=== PATIENT | female | born 1940 | race Caucasian/White ===

== ENCOUNTER → 2017-08-04 08:51 | Outpatient (CLI) | payer MEDICARE, SELFPAY ==
[2017-08-04 10:51] LABS: ALB/GLOB Ratio 0.9 RATIO (0.9-2.4); AST(SGOT) 17 U/L (15-37); Alanine Aminotransfer ALT/SGPT 23 U/L (13-56); Albumin, Serum 3.5 g/dL (3.2-5.0); Alkaline Phosphatase 81 U/L (45-117); Anion Gap 8 (5-15); BUN 16 mg/dL (7-18); BUN/Creat Ratio 18.6 RATIO (10-20); Calcium,Total 8.8 mg/dL (8.5-10.1); Chloride 109 mmol/L (98-107); Cholesterol 180 mg/dL (200); Creatinine, Serum 0.86 mg/dL (0.55-1.02); EST Glomerular Filtration Rate 68 mL/min (>60); Est Glom Filt Rate - Afr Amer 83 mL/min (>60); Globulin 3.9 g/dL (2.2-4.2); Glucose 127 mg/dL (74-106); High Density Lipoprotein 46 mg/dL; Potassium 4.6 mmol/L (3.5-5.1); Protein, Total 7.4 g/dL (6.4-8.2); Sodium Level 142 mmol/L (136-145); Triglycerides 128 mg/dL; Very Low Density Lipoprotein 26 mg/dL (5-40)
== END ==
PROVIDERS: Family Provider Family Medicine; PCP Family Medicine; Visit Provider Family Medicine
DX: E11.9 Type 2 diabetes mellitus without complications (principal)
CPT/HCPCS: 36415; 80053; 80061

== ENCOUNTER 2018-08-15 12:16 | Emergency (ER) | payer MEDICARE, SELFPAY ==
[2018-08-15 12:17] VITALS: BP 126/77; PULSE 98; RESP 18; TEMP 37.1; O2SAT 93; BMI 40.0
--- NOTE | 2018-08-15 12:57 | EKG12_ITS ---
Test Reason : SOB Blood Pressure : / mmHG Vent. Rate : 085 BPM Atrial Rate : 085 BPM P-R Int : 150 ms QRS Dur : 088 ms QT Int : 368 ms P-R-T Axes : 002 -35 055 degrees QTc Int : 437 ms Normal sinus rhythm Left axis deviation Abnormal ECG When compared with ECG of 30-APR-2009 11:47, No significant change was found Confirmed by MANI GAN ([id number]), industrial editor TAVO GONZALEZ ([id number]) on 08/28/2018 2:30:07 PM Referred By: GEMMA/KEVIN Confirmed By:STEVIE GAN
[2018-08-15] MEDS: Ipratropium/Albuterol Sulfate 3 ML AMPUL.NEB INHALATION (13:17)
[2018-08-15 13:20] VITALS: PULSE 93; RESP 17; O2SAT 94
[2018-08-15 13:34] VITALS: O2SAT 96
[2018-08-15 13:42] LABS: Absolute Lymphocyte Count 1.31 X10^3/ul (0.83-4.51); Absolute Neutrophil Count 8.2 X10^3/uL (2.0-7.7); Basophil# 0.05 X10^3/uL; Basophil% 0.5 % (0-1); Eosinophil# 0.06 X10^3/uL; Eosinophils% 0.5 % (0-5); Hemoglobin 13.9 g/dl (12.0-15.0); Lymphocyte # 1.31 X10^3/ul (4.0); Lymphocyte % 11.9 % (19-41); Mean Corp Hgb Conc 33.9 g/gl (32-36); Mean Corpuscular Volume 94.3 fL (81-99); Mean Platelet Vol. 10.7 fl (6.2-12.0); Monocyte% 12.7 % (0-10); Neutrophil # 8.19 X10^3/uL (2.7-7.7); Neutrophil % 74.2 % (47-70); Platelet Count 144 K/mm3 (150-450); RBC Distribution Width CV 12.7 % (11.6-14.6); RBC Distribution Width SD 43.9 fl (35.1-43.9); Red Blood Count 4.35 M/mm3 (4.2-5.4)
[2018-08-15 13:43] LABS: POSITIVE COUNT NO; POSITIVE DIFFERENTIAL NO; POSITIVE MORPHOLOGY NO
--- NOTE | 2018-08-15 13:43 | RAD_ITS ---
STUDY: X-RAY CHEST REASON FOR EXAM: Female, 78 years old. Shortness of breath and cough TECHNIQUE: PA and lateral views of the chest. COMPARISON: 08/15/2018 FINDINGS: EKG leads overlie the chest The lungs are clear and expanded. There is no demonstrated pleural abnormality. Normal size heart. Normal mediastinum and isaca. Normal visualized pulmonary arteries. Normal visualized aortic arch and descending thoracic aorta. Normal visualized thoracic spine. Evidence of previous right rotator cuff surgery A retrocardiac hiatal hernia is noted that was not described on the previous study. RAD/Chest PA and Lateral IMPRESSION: No acute pulmonary process Electronically Signed: Giovany Ledezma MD at 13:59 EDT , Service support ,
[2018-08-15 13:57] LABS: ALB/GLOB Ratio 0.8 RATIO (0.9-2.4); AST(SGOT) 14 U/L (15-37); Alanine Aminotransfer ALT/SGPT 19 U/L (13-56); Albumin, Serum 3.4 g/dL (3.2-5.0); Alkaline Phosphatase 90 U/L (45-117); Anion Gap 5 (5-15); BUN 18 mg/dL (7-18); BUN/Creat Ratio 17.3 RATIO (10-20); Calcium,Total 8.8 mg/dL (8.5-10.1); Chloride 102 mmol/L (98-107); Creatinine, Serum 1.04 mg/dL (0.55-1.02); EST Glomerular Filtration Rate 55 mL/min (>60); Est Glom Filt Rate - Afr Amer 66 mL/min (>60); Estimated Creatinine Clearance 32.54 ml/min; Globulin 4.5 g/dL (2.2-4.2); Glucose 136 mg/dL (74-106); Potassium 3.8 mmol/L (3.5-5.1); Protein, Total 7.9 g/dL (6.4-8.2); Sodium Level 135 mmol/L (136-145)
[2018-08-15 14:57] VITALS: BP 134/72; PULSE 91; RESP 16; O2SAT 93
--- NOTE | 2018-08-15 15:38 | ED.VISSUMM ---
- ER Visit Summary Date of Service: 08/15/18 Chief Complaint: Shortness of breath History of Present Illness: The patient is a 78 F who presents with shortness of breath that has been getting worse over the past 4 days. Patient states she has been having some tightness in her chest. Patient states this is worse with coughing and with exertion. Patient denies any fevers or chills. Patient admits to a sore throat. Patient also admits to a cough but denies any sputum production. Patient admits to a headache and some mild general weakness. Physical Examination: Vital signs are stable. Patient is afebrile. Patient is in no acute distress. Oral mucosa is pink and moist. Neck is supple. Trachea is midline. There is no JVD noted. Heart was regular rate and rhythm. Lungs showed expiratory wheezing. There is good respiratory effort noted. Abdomen is soft. Bowel sounds are normal. Cranial nerves II through XII are intact. There are no focal motor or sensory deficits noted. Test Results: PA and lateral chest x-ray was obtained. There is no acute cardiopulmonary process. EKG showed normal sinus rhythm with a rate of 85. There are no acute ST or T wave changes. This was unchanged compared to previous EKG dated 04/30/2009. CBC was normal. Basic metabolic profile was essentially within normal limits. Troponin was normal. Emergency Department Course and Treatment: Patient was given a DuoNeb aerosol here. Patient felt better on reevaluation. Patient was given a prescription for albuterol inhaler. Patient was instructed to follow-up with her primary care physician in 5-7 days. Patient and her understood and were agreeable with the plan. All questions were answered. Disposition: Discharge home Impression: Reactive airway disease This note was generated with [employer] dictation software. It may contain incorrect words, spelling, and punctuation that were not noted in review of the chart prior to signing ED Disposition - Plan for ED Patient: Disposition: Home or Assisted Living Diagnosis: Reactive airway disease Instructions: ED Reactive Airway Disease Prescriptions: Albuterol Inhaler [Ventolin Hfa] 2 puff INHALATION Q4H PRN PRN #1 inhaler PRN Reason: Wheezing Referrals: Andrew Domingo MD [Primary Care Provider] - 3-5 Days
[2018-08-15 15:49] VITALS: BP 146/78; PULSE 89; RESP 20; O2SAT 93
== END 2018-08-15 15:56 | disposition home or self-care (01) ==
PROVIDERS: Emergency Provider Emergency Medicine; Family Provider Family Medicine; PCP Family Medicine
DX: J45.909 Unspecified asthma, uncomplicated (principal); R06.00 Dyspnea, unspecified; Z79.899 Other long term (current) drug therapy; E11.9 Type 2 diabetes mellitus without complications; R05 Cough; R53.83 Other fatigue
CPT/HCPCS: 36415; 71046; 80048; 80053; 80061; 84443; 84484; 85025; 93005; 94640; 99284; A4216

== ENCOUNTER → 2018-08-15 | Outpatient (CLI) | payer MEDICARE, SELFPAY ==
--- NOTE | 2018-08-15 10:59 | RAD_ITS ---
STUDY: X-RAY CHEST REASON FOR EXAM: Female, 78 years old. Chest pain/pressure TECHNIQUE: PA and lateral views of the chest. COMPARISON: 11/08/2013 FINDINGS: There are interstitial fibrotic changes of the lungs. There is no demonstrated pleural abnormality. Normal size heart. Normal mediastinum and isaac. Normal visualized pulmonary arteries. There is atherosclerotic calcification of the aortic arch with tortuosity. There are diffuse degenerative changes of the visualized thoracic spine. There is degenerative osteoarthritis of the bilateral shoulders. Evidence previous right rotator cuff surgery. There is no demonstrated abnormality of the visualized soft tissue structures of the upper abdomen. RAD/Chest PA and Lateral IMPRESSION: Degenerative changes, as described above. No demonstrated acute cardiopulmonary process. Electronically Signed: Giovany Ledezma MD at 11:28 EDT , Service support ,
[2018-08-15 12:32] LABS: Absolute Lymphocyte Count 1.42 X10^3/ul (0.83-4.51); Absolute Neutrophil Count 7.5 X10^3/uL (2.0-7.7); Basophil# 0.05 X10^3/uL; Basophil% 0.5 % (0-1); Eosinophil# 0.17 X10^3/uL; Eosinophils% 1.6 % (0-5); Hematocrit 43.2 % (37-47); Hemoglobin 14.4 g/dl (12.0-15.0); Lymphocyte # 1.42 X10^3/ul (4.0); Lymphocyte % 13.6 % (19-41); Mean Corp Hgb Conc 33.3 g/gl (32-36); Mean Corpuscular Hgb 31.5 pg (27.0-32.0); Mean Corpuscular Volume 94.5 fL (81-99); Mean Platelet Vol. 11.1 fl (6.2-12.0); Monocyte# 1.25 X10^3/uL; Neutrophil # 7.53 X10^3/uL (2.7-7.7); Neutrophil % 72.2 % (47-70); Platelet Count 148 K/mm3 (150-450); RBC Distribution Width CV 12.8 % (11.6-14.6); RBC Distribution Width SD 44.5 fl (35.1-43.9); Red Blood Count 4.57 M/mm3 (4.2-5.4); White Blood Count 10.4 K/mm3 (4.4-11.0)
[2018-08-15 12:42] LABS: POSITIVE COUNT NO; POSITIVE DIFFERENTIAL NO; POSITIVE MORPHOLOGY NO
[2018-08-15 12:56] LABS: Anion Gap 9 (5-15); BUN 18 mg/dL (7-18); BUN/Creat Ratio 16.7 RATIO (10-20); Calcium,Total 9.3 mg/dL (8.5-10.1); Chloride 101 mmol/L (98-107); Cholesterol 169 mg/dL (200); Creatinine, Serum 1.08 mg/dL (0.55-1.02); EST Glomerular Filtration Rate 52 mL/min (>60); Est Glom Filt Rate - Afr Amer 63 mL/min (>60); Glucose 139 mg/dL (74-106); High Density Lipoprotein 53 mg/dL; Potassium 3.8 mmol/L (3.5-5.1); Sodium Level 137 mmol/L (136-145); Thyroid Stim Hormone (TSH) 0.52 uIU/mL (0.358-3.74); Triglycerides 125 mg/dL; Very Low Density Lipoprotein 25 mg/dL (5-40)
== END | disposition home or self-care (01) ==
PROVIDERS: Family Provider Family Medicine; PCP Family Medicine; Referring Provider Nurse Practitioner Adult Health; Visit Provider Nurse Practitioner Adult Health
DX: R05 Cough (principal)
CPT/HCPCS: 36415; 71046; 80048; 80061; 84443; 85025

== ENCOUNTER → 2019-01-30 | Outpatient (CLI) | payer MEDICARE, SELFPAY ==
--- NOTE | 2019-01-30 09:28 | BI_ITS ---
BILATERAL DIGITAL MAMMOGRAM WITH TOMOSYNTHESIS: Mediolateraloblique and craniocaudal views demonstrate evidence of dominant parenchymal mass in the anterior aspect the left breast 12:00 position. This spiculated mass lesion is not seen on the previous mammogram obtained on 07/16/2014 and is highly suspicious for carcinoma. A targeted left breast ultrasound at the 12:00 position of the left breast, and a ultrasound directed left breast biopsy is recommended for further evaluation.. No cluster of microcalcifications No evidence of skin thickening or skin retraction is identified Breast Density: The breast tissue is heterogeneously dense, which may obscure small masses. CAD was used to assist in final assessment. IMPRESSION: Abnormal mammogram containing a spiculated mass lesion in the anterior aspect of the left breast, not previously noted which represents carcinoma till proven otherwise. A targeted left breast ultrasound and ultrasound directed left breast biopsy is recommended for further evaluation FINAL ASSESSMENT: BI-RAD CATEGORY IV (SUSPICIOUS ABNORMALITY - BIOPSY RECOMMENDED). Approximately 10% of breast cancers are not detected by mammography. A normal mammogram should not delay biopsy of a clinically suspicious abnormality. Electronically Signed: Trenton Segura, at 19:21 EDT Tel , Service support , BI/SCREEN MAMM (CAD) W/KUNAL ISSA
--- NOTE | 2019-01-30 09:33 | BD_ITS ---
STUDY: DUAL ENERGY X-RAY ABSORPTIOMETRY / DXA REASON FOR EXAM: Female, 78 years old. Early menopause. No loss of height. TECHNIQUE: Bone Mineral Density (BMD) measurements of lumbar spine and bilateral hips were obtained. COMPARISON: Comparison is made with prior study dated July 16, 2014. FINDINGS: Lumbar Spine (L1-L4): g/cm2 (1.134) / T-score (-0.6) / Z-score (1.2) Findings are suggestive of normal bone density with a low fracture risk. Left Femur Total: g/cm2 (0.913) / T-score (-0.8) / Z-score (1.1) Left Femoral Neck: g/cm2 (0.807) / T-score (-1.7) / Z-score (0.4) Right Femur Total: g/cm2 (0.854) / T-score (-1.2) / Z-score (0.6) Right Femoral Neck: g/cm2 (0.794) / T-score (-1.8) / Z-score (0.3) The T-Scores on the most recent prior examination were: Lumbar Spine (L1-L4): There has been improvement of bone density since the previous examination. Left Femur Total: which represents a worsening of 3.4%. Right Femur Total: which represents a worsening of 10.7%. BD/Dexa Bone Density Study IMPRESSION: The patient is considered osteopenic as outlined below according to World Ever Organization (WHO) criteria with a moderate fracture risk. There has been worsening of bone density since the previous examination. Reference Information: The T-score is the number of standard deviations above or below the standard which is normal for young adults at their peak bone mineral density. The World Health Organization (WHO) interprets the T-scores as follows: Above -1 Normal bone density Between -1 and -2.5 Osteopenia Equal to / or below -2.5 Osteoporosis As a practical clinical guideline, osteopenia may be graded as follows: Mild -1 through -1.5 Moderate -1.6 through -2.0 Severe -2.1 through -2.4 The Z-score is the number of standard deviations above or below age-matched controls. A Z-score of less than -1.5 would be considered abnormal. References: 1. NIH Osteoporosis and Related Bone Diseases http://www.osteo.org 2. International Society for Clinical Densitometry http://www.iscd.org 3. National Osteoporosis Foundation http://www.nof.org Electronically Signed: Medhat Gallardo, at 8:49 EDT , Service support ,
== END | disposition home or self-care (01) ==
LOC: OPBD 09:26
PROVIDERS: Family Provider Family Medicine; PCP Family Medicine; Referring Provider Family Medicine; Visit Provider Family Medicine
DX: Z78.0 Asymptomatic menopausal state (principal); Z12.31 Encounter for screening mammogram for malignant neoplasm of breast
CPT/HCPCS: 77063; 77067; 77080

== ENCOUNTER → 2019-02-05 | Outpatient (CLI) | payer MEDICARE, SELFPAY ==
--- NOTE | 2019-02-05 10:26 | US_ITS ---
STUDY: ULTRASOUND BREAST - LEFT REASON FOR EXAM: Female, 78 years old. Abnormal screening mammogram. TECHNIQUE: Axial and longitudinal images of the LEFT breast were performed with a high resolution ultrasound transducer. COMPARISON: Comparison is made with prior mammogram dated January 30, 2019. FINDINGS: LEFT Breast: The mammographic abnormality corresponds to an 8 mm x 7 mm x 7 mm irregular hypoechoic solid nodule at the 12:00 position of the breast at 3 cm from the nipple. Posterior shadowing is seen. A biopsy strongly recommended. Increased vascularity is present. US/Breast Limited Unilateral IMPRESSION: The mammographic abnormality corresponds to an 8 mm x 7 mm x 7 mm irregular hypoechoic solid nodule at the 12:00 position of the breast at 3 cm from nipple. A biopsy is recommended. ASSESSMENT CATEGORY: BIRADS Category 5: Highly Suggestive of Malignancy - Appropriate Action Should Be Taken. A letter regarding these results will be sent to the patient by the facility within 30 days. Electronically Signed: Medhat Gallardo, at 11:06 EDT , Service support ,
== END | disposition home or self-care (01) ==
LOC: OPUS 10:25
PROVIDERS: Family Provider Family Medicine; PCP Family Medicine; Referring Provider Family Medicine; Visit Provider Family Medicine
DX: R92.8 Other abnormal and inconclusive findings on diagnostic imaging of breast (principal)
CPT/HCPCS: 76642

== ENCOUNTER → 2019-02-07 | Outpatient (CLI) | payer MEDICARE, SELFPAY ==
--- NOTE | 2019-02-07 | IMM_PTH ---
PATIENT: JUAN C GONZALEZ LOC: [facility] U#:[id number] AGE/SX: 78/F ROOM: RE02/07/[address]: Dr. Carlin Negrete MD : 1940 BED: DIS: 02/07/2019 SPEC #: [id number] RECD: 02/08/19 12:34 STATUS: NINA REQ #: [id number] JAMES: 02/07/19 00:[address]: Carlin Negrete DEPT: IMMUNOHISTOCHEMISTRY RECD BY: Ramona Colon ENTERED: 02/08/19 12:36 SP TYPE: IMMUNO OTHR DR: Dr. Jann Domingo MD Tissues: Left breast, NOS Procedures: CALPONIN-1 (add) CK5-6 (add) CK8 (add) E-CAD (add) HER2 ÁLVARO (add) KI-67 (add) P53 (add) MD (add) P40 (add) ER (initial) PHYSICIAN & [address] [address] SPECIMEN INFORMATION: Tissue Source: Left breast tissue Clinical Info: Left breast abnormal ultrasound/mammogram Specimen Number: [id number] CPT code: 43252, 08332 x6, 04629 x3 METHODOLOGY: Deparaffinized sections of prefer/formalin-fixed tissue or PAP/DQ stained slides are incubated with monoclonal/polyclonal antibodies/oligonucleotide probes. Localization is made via biotin free immunoperoxidase method. Appropriate controls are performed and reacted as expected. Results on target cell population are indicated in the following table: RESULTS: ANTIBODY / CLONE RESULT E-Cad (ECH-6) positive CK8 (04psesY71) positive Calponin-1 (NG418R) negative CK5-6 (D5 & 1684) negative P40 (BC28) negative P53 (DO-7) negative Ki-67 (30-9) positive, low MORPHOMETRIC ANALYSIS ER (clone 6F11) >95%, strong intensity MD (clone 16/1E2) >95%, strong intensity Her-2Neu (clone CB11) 0 The prognostic test for HER2 is performed on formalin-fixed paraffin embedded tissue. A 3+ (positive) staining pattern is defined as intense, homogeneous, complete, circumferential membranous staining in >10% of contiguous tumor cells. A similar weak (2+) staining pattern is interpreted as equivocal. JOSEPH follow-up testing is recommended for all equivocal cases. Positivity/negativity for ER/MD is reported if > or < 1% of the tumor cells are immuno- reactive, respectively. The ASCO/CAP criteria is used for scoring. Reference: Journal of Clinical Oncology, 2013; 31:4589-9261 & 2010; 16:9230-3229. Duration of fixation: 10.5 Hrs; Sample Adequate: Yes. These assays have not been validated on decalcified tissues. Results should be interpreted with caution given the likelihood of false negativity on decalcified specimens. These tests were developed and their performance characteristics determined by [facility]. They may not have been cleared or approved by the U.S. Food and Drug Administration. The FDA has determined that such clearance or approval is not necessary. The above immunohistochemical/dualISH markers are ordered and reviewed by the Pathologist. INTERPRETATION: Left breast, core biopsy: Invasive ductal carcinoma, nuclear grade 2. Positive for estrogen receptors (favorable prognostic indicator). Positive for progesterone receptors (favorable prognostic indicator). Negative for overexpression of RPT3rvd. SJ:agnieszka 02/09/19
[2019-02-07 08:49] VITALS: BMI 40.0
--- NOTE | 2019-02-07 09:00 | BRBX_PTH ---
PATIENT: JUAN C GONZALEZ LOC: [facility] U#:[id number] AGE/SX: 78/F ROOM: RE02/07/[address]: Dr. Carlin Negrete MD : 1940 BED: DIS: 02/07/2019 SPEC #: [id number] RECD: 02/07/19 09:39 STATUS: NINA REQ #: [id number] JAMES: 02/07/19 09:[address]: Carlin Negrete DEPT: SURGICAL PATHOLOGY RECD BY: Tin Henry ENTERED: 02/07/19 13:34 SP TYPE: BREAST BX OTHR DR: Dr. Jann Domingo MD Tissues: Left breast, NOS Procedures: Surgery Specimen Level IV HEADER OPERATION: Left breast biopsy PRE-OP DIAGNOSIS: Left breast abnormal ultrasound/mammogram TISSUE SUBMITTED: Left breast tissue FIXATION TIME: 10.5 hours MICROSCOPIC DIAGNOSIS Left breast, core biopsy: Invasive ductal carcinoma, nuclear grade 2 (0.8 cm in greatest length). See comment. GERMAN:agnieszka 02/08/19 COMMENT The tumor is associated with marked fibrosis and moderate chronic inflammation. Immunohistochemistry ([id number]) supports the above diagnosis. ER/NH/Wdm7bfe studies are being performed on sections of tumor and the results from this study will be reported separately ([id number]). Case has been reviewed in consultation with Dr. Guerrero who concurs with the above diagnosis. IDC:AM MICROSCOPIC DESCRIPTION Slides are reviewed. GROSS DESCRIPTION Received in fixative is one container labeled with the patient's name and designated left breast. The specimen consists of one elongated fragment of herrera-yellow fibroadipose tissue measuring 1.2 cm in length and 0.1 cm in diameter. The entire specimen is submitted in one cassette. / GERMAN:agnieszka 02/07/19 TC:0 CPT: 11448
== END | disposition home or self-care (01) ==
LOC: LABSPEC 10:54
PROVIDERS: Family Provider Family Medicine; PCP Family Medicine; Referring Provider Surgery; Visit Provider Surgery
DX: R92.8 Other abnormal and inconclusive findings on diagnostic imaging of breast (principal)
CPT/HCPCS: 88305; 88341; 88342

== ENCOUNTER 2019-02-21 07:38 | Day surgery (SDC) | payer MEDICARE, SELFPAY ==
[2019-02-13 10:12] VITALS: BMI 40.0
--- NOTE | 2019-02-13 10:32 | HP_ITS ---
Intake Vital Signs 02/13/19 Body Mass Index (BMI) 40.0 02/13/19 Height 4 ft 11.5 in 02/13/19 Weight: 185 lb 02/13/19 Body Mass Index (BMI) 36.7 02/13/19 Blood Pressure 112/75 02/13/19 Blood Pressure Location Rt brachial 02/13/19 Blood Pressure Position Sitting 02/13/19 Respiratory Rate 18 02/13/19 Pulse Rate 76 02/13/19 Pulse Source Monitor 02/13/19 Temperature 98.5 F 02/13/19 Temperature Source Oral 02/13/19 Pulse Ox 96 02/13/19 Oxygen Delivery Method room air Intake Visit Reasons: Discuss Surgery Chief Complaint: Follow up left breast biopsy [employer] Required: No Is patient in pain?: No Allergies aspirin Allergy (Verified 02/13/19 10:12) Swelling levofloxacin [From Levaquin] Allergy (Verified 02/13/19 10:12) Swelling meperidine HCl [From Demerol] Allergy (Verified 02/13/19 10:12) Swelling Medications Sertraline HCl [Zoloft] 100 mg PO QHS 02/23/13 [History Confirmed 02/13/19] Albuterol Inhaler [Ventolin Hfa] 2 puff INHALATION Q4H PRN PRN #1 inhaler 08/15/18 [Rx Confirmed 02/13/19] nizjakdn-ilo-otmcl ac 400 mcg-calcium carb 500 mg-vit K1 20 mcg tablet tab PO tab 02/07/19 [History Confirmed 02/13/19] Is last menstrual period known: No Post menopausal: Yes Patient : No PFSH Medical History Breast cancer, left (Acute) Anxiety (Acute) Back pain (Acute) Surgical History History of bilateral cataract extraction (Acute) History of bilateral knee replacement (Acute) History of colonoscopy (Acute) History of lumpectomy of left breast (Acute) History of total hysterectomy (Acute) Status post cataract extraction of both eyes with insertion of intraocular lens (Acute) history of bilateral elbow surgery (Acute) history of bilateral heel spur removal (Acute) history of dental implant surgery (Acute) Family History Sister Heart disease Thyroid disorder Cancer renal Father Cancer brain Mother Cancer unsure type Social History (Updated 02/13/19 @ 10:32 by Carlin Negrete MD) Smoking Status: Never smoker HPI HPI HPI: JUAN C GONZALEZ, is a 78 F who presents to the office today for HPI HPI Surgical H&P: Yes HPI: JUAN C GONZALEZ, is a 78 F who presents to the office today for Status post an ultrasound-guided needle core biopsy of her left breast which was completed on 02/07/2019. This came back as an invasive ductal carcinoma it was ER and AR strongly positive and HER-2/jonathan negative. I discussed with her surgical options to include an ultrasound-guided wire localization sentinel lymph node biopsy lumpectomy. As well as discussing with her the possibility of a mastectomy. She has opted to undergo the lumpectomy. ROS General General: Yes weight change and fatigue; no appetite, colon cancer, breast cancer or weakness HEENT HEENT: Yes eye surgery; no difficulty swallowing, eye injury, swollen glands or hoarseness Endo Endocrine: No thyroid disease, diabetes mellitus, thyroid cancer, Hair loss, heat intolerance or cold intolerance Breast Breast: Yes abnormal mammogram and abnormal US; no left breast lump, right breast lump, nipple discharge, breast pain or breast enlargement Musc Musculoskeletal: Yes back problems; no arthritis, rheumatoid arthritis, gout or joint pain Cardio Cardiovascular: No murmur, pacemaker, heart disease, atrial fibrillation, high blood pressure, heart attack, heart stent, palpitations, shortness of breat with exertion or chest pain Resp Respiratory: No shortness of breath, No sleep apnea, No cough, No COPD, No asthma, No emphysema, No wheezing Gastro Gastrointestinal: No abdominal pain, No nausea or vomiting, No diarrhea, No constipation, No blood in stool, No acid reflux, No hemorrhoids, No ulcers, No gallbladder problem, No black,tarry stools Paul Hematologic: No blood thinners, No blood disorders, No bleeding, No anemia, No blood clots Neuro Neurologic: No weakness Exam Const General: no acute distress, well developed, well hydrated Orientation: oriented to person, oriented to place, oriented to time [facility] Head: normocephalic, atraumatic Ears: external ears normal Mouth: moist mucous membranes Eyes Sclera: sclerae normal Pupils: normal by confrontation Neck Neck: no lymphadenopathy noted Neck mass: No Thyroid: thyroid normal, symmetrical Chest Chest palpation & inspection: normal inspection of the chest Breast inspection: normal inspection of the breasts Breast Palpation: No nipple discharge Other: Palpation of the right breast reveals NegativeExam for palpable lumps. Palpation of the left breast reveals Biopsy site in the upper outer quadrant Steri-Strips in place no signs of infection. Axillary exam demonstrates no suspicious masses in either the left or right axilla. Resp Effort & Inspection: normal respiratory effort Auscultation: clear to auscultation bilaterally Percussion: percussion normal Cardio Rate: regular rate Rhythm: regular rhythm Heart Sounds: no murmurs GI Palpation: soft, no hepatosplenomegaly, no masses, nontender Rectal Exam: other Other: Rectal exam deferred. Extrem General: normal to inspection, no clubbing, cyanosis or edema Assessment & Plan Problems 1. Malignant neoplasm of upper-outer quadrant of left breast in female, estrogen receptor positive C50.412; Z17.0 Plan I have given the patient options for initial surgical treatment. Options are the following: lumpectomy followed by radiation therapy vs. mastectomy vs. mastectomy followed by immediate reconstruction. I have described the procedures to the patient. I have described the advantages and disadvantages of the options, but I have told the patient that among the options, the survival rate for breast cancer is the same. I have told the patient that with all the surgeries that a sentinel lymph node biopsy is required. I have described the procedure of sentinel lymph node biopsy to the patient. I have told the patient that if the biopsy is positive for metastatic disease, then a full axillary lymph node dissection is required. I have told the patient that adjuvant chemotherapy will be required should the lymph nodes reveal metastatic disease. Also, a full lymph node dissection will increase the risk for lymphedema, especially if there are 4 or more lymph nodes positive for metastatic disease and radiation to the axilla is also required. I have told the patient the risks of surgery, including but not limited to: infection, bleeding, scar tissue, seroma and persistent seroma, lymph leak, injury to any blood vessels, injury to any nerves (particularly the long thoracic, the thoracodorsal, and the second intercostal brachial and the resultant sequelae), lymphedema, cosmetic deformity, dysesthesias, wound infections, further surgery (especially if margins are not clear), complications of anesthesia, etc. the patient understands. The patient will think about the options and discuss it further with the family. The patient will contact me in the next few days when she decides what the patient wishes to do. I have answered all the patient?s questions at this point to her satisfaction and she has no further questions. We will be performing a ultrasound-guided wire localization lumpectomy with sentinel lymph node biopsy on the left breast. Coding Level of Care Code Off vis,est,level 3 Diagnoses Malignant neoplasm of upper-outer quadrant of left breast in female, estrogen receptor positive C50.412; Z17.0 ??Breast location: upper outer quadrant of breast ??Estrogen receptor status: positive ??Laterality: left 02/13/19 1032 <Electronically signed by Carlin whitaker MD> Date _ Carlin Negrete MD I have re-examined the patient. There are no clinical changes since date of exam.
[2019-02-21] VITALS (7 sets, daily range): BP systolic 93–135; BP diastolic 64–77; PULSE 67–83; RESP 16; TEMP 36.2–36.5; O2SAT 92–99; BMI 36.8
--- NOTE | 2019-02-21 | BRBX_PTH ---
PATIENT: JUAN C GONZALEZ [place] [facility] [place][id number] AGE/SX: 78/F ROOM: RE02/21/[address]: Dr. Carlin Negrete MD : 1940 BED: DIS: 02/21/2019 SPEC #: [id number] RECD: 02/21/19 11:52 STATUS: NINA REArmida #: [id number] JAMES: 02/21/19 00:[address]: Carlin Negrete DEPT: SURGICAL PATHOLOGY RECD BY: Ramona Colon ENTERED: 02/21/19 12:35 SP TYPE: BREAST BX OTHR DR: Dr. 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 [place] lymph node, biopsy: Two out of two lymph nodes, negative for metastatic carcinoma. SJ:agnieszka 02/21/19 MICROSCOPIC DIAGNOSIS A. Left breast lumpectomy: Invasive ductal carcinoma. See cancer checklist below. B. Left axillary sentinel lymph nodes, biopsy: One out of two lymph nodes with isolated tumor cells consistent with breast primary. AM:agnieszka 02/27/19 COMMENT INVASIVE BREAST CANCER SUMMARY: (specimen A) Specimen: Partial breast Procedure: Excision with wire guidance Specimen integrity: Single intact specimen. Specimen size: 10 x 7 x 4 cm Specimen laterality: Left Tumor size: 0.9 x 0.7 x 0.5 cm Tumor focality: Single focus of invasive carcinoma Macroscopic and Microscopic extent of tumor: Skin: Negative for carcinoma Nipple: Not present Skeletal muscle: Not present Histologic type of invasive carcinoma: Invasive ductal carcinoma Histologic Grade ([place] grade): Glandular/tubular differentiation score: 3 Nuclear pleomorphism score: 3 Mitotic count score: 2 Overall grade: Grade 3 (total score of 8) Margins: Uninvolved by invasive carcinoma. 1 cm from closest (inferior) margin Lymph-Vascular invasion: Not identified Dermal lymph-vascular invasion: Not identified Ductal carcinoma in situ (DCIS): DCIS is present Estimated percent of DCIS: 25% of tumor volume Number of blocks with DCIS: 3 Number of blocks examined: 12 Architectural patterns: Cribriform and solid Nuclear grade: grade 3 (high grade) Necrosis: present, focal Lobular carcinoma in situ (LCIS): not present Lymph nodes: Number of sentinel lymph nodes examined: 2 Total number of lymph nodes examined (sentinel and nonsentinel): 2 Isolated tumor cells are identified in one of two lymph nodes. See specimen B. Microcalcifications: present in non-neoplastic tissue Treatment effect: Unknown Additional pathologic findings: fibrocystic change, usual intraductal hyperplasia without atypia. Intratumor lymphocytic response: Moderate Ancillary studies: Previously performed on same tumor ([id number] / [id number]). ER: >95%, strong intensity NV: >95%, strong intensity Her2 jonathan: negative (IHC) Her2 by dual JOSEPH: Not performed PATHOLOGIC STAGE: pT1b N0(i+) Mx The above summary is in compliance with [employer] (CAP) Cancer Protocols Checklist and [place] [employer] Committee on Cancer (AJCC), Staging Manual, 8th Ed. Immunohistochemistry ([id number]) supports the above diagnosis. Case has been reviewed in consultation with Dr. Brown who concurs with the above diagnosis. IDC:SJ MICROSCOPIC DESCRIPTION Slides are reviewed. GROSS DESCRIPTION A - Received fresh for intraoperative consultation labeled with the patient's name is a specimen designated left breast lumpectomy. The specimen consists of a piece of fibroadipose with needle localization measuring 10 x 7 x 4 cm. A piece of skin is noted measuring 1.5 x 0.5 cm. The specimen is oriented by suture as follows: stitch comes out anterolateral, double long - medial, single long - superior, double short - posterior chest wall. The specimen is inked as follows: anterior - yellow, posterior - black, superior - blue, inferior - green, medial - orange and lateral - red. Serial sections reveal a herrera, indurated mass measuring 0.9 x 0.7 x 0.5 cm. This mass is 1 cm away from the closest inferior margin. This information is conveyed to the surgeon intraoperatively. Sections of the rest of the specimen reveal herrera-yellow adipose cut surfaces mixed with fibrous area. Account Installer sections are submitted in 12 cassettes as follows: 1 - perpendicular superior and inferior margins, 2 - perpendicular medial and lateral margins, 3 - skin piece, bisected and perpendicular anterior and posterior margins, 4-6 - entire tumor, 7-12 - promotional representative sections adjacent to and away from the tumor. Sections will be submitted after additional fixation. / GERMAN:agnieszka 02/22/19 B - Received fresh for frozen section diagnosis labeled with the patient's name is a specimen designated sentinel lymph node. The specimen consists of a piece of adipose tissue measuring 4 x 3.5 x 1 cm. Two nodules consistent with lymph nodes are identified measuring 1 and 1.5 cm in greatest dimension. Both lymph nodes are submitted entirely for frozen section diagnosis in two cassettes with each cassette containing one lymph node. / GERMAN:agnieszka 02/21/19 TC: 0 CPT: 89115 x2, 46709, 34544, 01002
--- NOTE | 2019-02-21 | IMM_PTH ---
PATIENT: JUAN C GONZALEZ LOC: [facility] – [place] U#:[id number] AGE/SX: 78/F ROOM: RE02/21/[address]: Dr. Carlin Negrete MD : 1940 BED: DIS: 02/21/2019 SPEC #: [id number] RECD: 02/26/19 11:31 STATUS: NIAN REQ #: [id number] JAMES: 02/21/19 00:[address]: Carlin Negrete DEPT: IMMUNOHISTOCHEMISTRY RECD BY: Ramona Colon ENTERED: 02/26/19 11:33 SP TYPE: IMMUNO OTHR DR: Dr. 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 Localization is made via biotin free immunoperoxidase method. Appropriate controls are performed and reacted as expected. Results on target cell population are indicated in the following table: RESULTS: ANTIBODY / CLONE RESULT Block B1 CK8 ([id number]) negative AE1-3 (AE1/AE3/PCK26) negative Block B2 CK8 (71xsuxG87) negative AE1-3 (AE1/AE3/PCK26) positive ER (6F11) positive GATA3 (L50-823) positive Mammaglobin (31A5) positive CK7 (OV-TL12/30) negative These tests were developed and their performance characteristics determined by [facility]. They may not have been cleared or approved by the U.S. Food and Drug Administration. The FDA has determined that such clearance or approval is not necessary. The above immunohistochemical/dualISH markers are ordered and reviewed by the Pathologist. INTERPRETATION: B. [place] lymph node, biopsy: One out of two lymph nodes with isolated tumor cells consistent with breast primary. AM:agnieszka 02/27/19 Case has been reviewed in consultation with Dr. Brown who concurs with the above diagnosis. IDC:SJ
[2019-02-21] MEDS: Lactated Ringers 1,000 ML 100 ML IV (08:12)
--- NOTE | 2019-02-21 08:30 | NM_ITS ---
PROCEDURE: NUCLEAR MEDICINE Injection [place] Node - LEFT breast(s). REASON FOR EXAM: Female, 78 years old. Left breast cancer. TECHNIQUE: [place] node localization using radionuclide methods of the LEFT breast(s) was performed following subcutaneous administration of 1.2 mCi of of sulfur colloid Tc-99m. FINDINGS: 1.2 mCi of technetium labeled sulfur colloid was injected subcutaneously in 4 equal aliquots in the upper outer aspect of the left breast. NM/Lymph Node Injection Only IMPRESSION: Subcutaneous injection of 1.2 mCi of technetium labeled sulfur colloid for sentinel node imaging. Electronically Signed: Medhat Gallardo, at 9:32 EDT , Service support ,
--- NOTE | 2019-02-21 10:45 | PCM.OPRPT ---
Problem List (1) Malignant neoplasm of upper-outer quadrant of left female breast Status: Acute Qualifiers: Estrogen receptor status: positive Qualified Code(s): C50.412 - Malignant neoplasm of upper-outer quadrant of left female breast; Z17.0 - Estrogen receptor positive status [ER+] Report of Operation Date of Procedure: 02/21/19 Pre-Operative Diagnosis: Invasive ductal carcinoma left breast upper outer quadrant Post-Operative Diagnosis: Name Surgery/Procedure Performed:: 1. Wire localization of invasive ductal carcinoma left breast. 2. injection of 5 cc of Lymphazurin blue the left breast. 3. Wire localization lumpectomy of left breast. 4. [place] lymph node biopsy left axilla Anesthesiologist: Lorenzo Marinelli Estimated Blood Loss (mL): < 25 cc Fluids Replaced: 1 L LR Description of Procedure: Patient was brought into the operating room. Placed in the supine position. Under excellent LMA anesthetic ultrasound-guided wire localization was performed using a Kopan's needle. I went through my old previous biopsy site directly through the lesion without difficulty. I prepped the breast with alcohol. I injected 5 cc circumareolar Benjamin and massage the breast for 5 minutes. The breast was then sterilely prepped draped in usual fashion. Local was injected in the upper outer quadrant incision was made ellipsing out mild previous biopsy site he is electrocautery to come directly around the lesion going all the way down to the chest wall and coming out laterally I marked the specimen double long medial, single long anterior, double short posterior, skin and wire, laterally. I used electrocautery to gain access into the clavipectoral fascia and dissecting down I followed a blue lymph node going into the axillary area and removed a grouping of lymph nodes using the harmonic dissector. I took the specimen out it did register on the neoprobe approximately 175 I then placed the neoprobe back into the axilla and no readings were obtained. I irrigated out my wound. I brought the subcu together with interrupted 2-0 Vicryl. Deep dermal stitches of 3-0 Vicryl. Running 4-0 Monocryl. Dermabond was applied sterile dressings were applied and the patient tolerated the procedure well. - Admit VTE Documentation VTE Present on Admission: No VTE Mechan Device Prophylaxis: SCD's VTE Pharm Prophylaxis ordered?: No Reason prophylaxis not ordered:: Treatment Not Indicated
[2019-02-21] MEDS: Cefazolin 2 GM in 0.9% Normal Saline 100 ML IV (11:06)
[2019-02-21] MEDS: Isosulfan Blue 1% 5 ML Vial (11:29)
[2019-02-21] MEDS: Bupivacaine Mpf 0.5% 30 ML VIAL (11:40)
--- NOTE | 2019-02-21 11:45 | BI_ITS ---
SURGICAL BREAST SPECIMEN RADIOGRAPH CLINICAL: Document presence of mass in biopsy specimen. FINDINGS: Specimen shows presence of mass. Electronically Signed: Medhat Gallardo, at 12:48 EDT , Service support , BI/Breast Biopsy Specimen
--- NOTE | 2019-02-21 12:02 | DCINST_ITS ---
Discharge Diet: No Restrictions Discharge Activity: May Not Drive - for 2-3 days or while taking narcotic pain meds. May shower in (days): 1 Lifting Restrictions: 10 pounds for 1 week. Call your doctor if your incision/area has: Continuous Slow Oozing, Sudden In creased Bleeding Call your doctor if you observe: Fever of 101 or Higher Suture Line Care: Avoid Pulling/Pushing, Avoid Pinching/Bending Remove Dressing in (days):: 1 - Remove bulky dressing tomorrow. May leave any opsite dressing for 3-4 days. Keep dressing in place until your follow-up appointment. Additional Dressing/Incision Instructions:: Remove bulky dressing tomorrow. May leave any opsite dressing for 3-4 days. Keep dressing in place until your follow-up appointment. Allergies/Adverse Reactions: Allergies aspirin Allergy (Verified 02/21/19 08:03) Swelling levofloxacin [From Levaquin] Allergy (Verified 02/21/19 08:03) Swelling meperidine HCl [From Demerol] Allergy (Verified 02/21/19 08:03) Swelling Medications to take at Discharge Sertraline HCl [Zoloft] 100 mg PO QHS 02/23/13 eiormksm-ktp-srssd ac 400 mcg-calcium carb 500 mg-vit K1 20 mcg tablet 1 tab PO DAILY tab 02/07/19 Oxycodone HCl/Acetaminophen [Percocet 5/325] 1 - 2 tab PO Q4H PRN PRN 6 Days #30 tab 02/21/19 The following prescriptions were given: Oxycodone HCl/Acetaminophen [Percocet 5/325] 1 - 2 tab PO Q4H PRN PRN 6 Days #30 tab PRN Reason: Pain Prescription Printed Primary Care Physician: Andrew Domingo MD [Primary Care Provider] -
== END 2019-02-21 14:54 | disposition home or self-care (01) ==
LOC: SDC 07:38 → AC 07:44
PROVIDERS: Family Provider Family Medicine; PCP Family Medicine; Referring Provider Surgery; Visit Provider Surgery
PROC: (CPT 19301; principal; 2019-02-21 10:45)
DX: C50.412 Malignant neoplasm of upper-outer quadrant of left female breast (principal); Z17.0 Estrogen receptor positive status [ER+]; F41.9 Anxiety disorder, unspecified; F32.9 Major depressive disorder, single episode, unspecified; Z79.899 Other long term (current) drug therapy
CPT/HCPCS: 00400; 19301; 38500; 38792; 76098; 88305; 88307; 88331; 88332; 88341; 88342; A9541; J7120; J2405; Q9968

== ENCOUNTER → 2019-06-14 15:41 | Outpatient (CLI) | payer MEDICARE, SELFPAY ==
[2019-03-13 11:01] VITALS: BMI 37.0
--- NOTE | 2019-06-14 | BRBX_PTH ---
PATIENT: JUAN C GONZALEZ LOC: [facility] U#:[id number] AGE/SX: 84/F ROOM: RE06/14/[address]: Dr. Carlin Negrete MD : 1940 BED: DIS: SPEC #: [id number] RECD: 06/15/19 09:59 STATUS: NINA ABEL #: [id number] JAMES: 06/14/19 00:[address]: Carlin Negrete DEPT: SURGICAL PATHOLOGY RECD BY: Kyle Alcaraz ENTERED: 06/15/19 10:00 SP TYPE: BREAST BX OTHR DR: Dr. Jann Domingo MD Tissues: Left breast, NOS Procedures: Special Stain Group I Surgery Specimen Level IV GMS Stain (control) HEADER OPERATION: Left breast punch biopsy PRE-OP DIAGNOSIS: Neoplasm of skin of breast TISSUE SUBMITTED: Punch biopsy left breast ISCHEMIC TIME: <30 seconds FIXATION TIME: 76.5 hours MICROSCOPIC DIAGNOSIS Skin lesion of left breast, punch biopsy: Minimal dermal chronic inflammation. No evidence of malignancy. No evidence of fungal organisms. See comment. AM:agnieszka 06/18/19 COMMENT GMS stain with matched control was used in the evaluation of this case. MICROSCOPIC DESCRIPTION Slides are reviewed. Prominent benign nerves are present in the dermis. GROSS DESCRIPTION Received in fixative is one container labeled with the patient's name and designated left breast. The specimen consists of a punch biopsy of herrera-brown skin measuring 0.5 cm in diameter and 0.8 cm in length. The entire specimen is submitted in one cassette. / SJ:agnieszka 06/15/19 TC:3 CPT: 48389, 57172
[2019-06-14 14:50] VITALS: BMI 37.5
== END ==
PROVIDERS: PCP Family Medicine; Referring Provider Surgery; Visit Provider Surgery
DX: D48.5 Neoplasm of uncertain behavior of skin (principal)
CPT/HCPCS: 88305; 88312

== ENCOUNTER → 2020-02-04 09:15 | Outpatient (CLI) | payer MEDICARE, SELFPAY ==
[2019-03-13 11:01] VITALS: BMI 37.0
[2019-09-03 10:15] VITALS: BMI 38.5
[2019-12-03 11:06] VITALS: BMI 37.8
--- NOTE | 2020-02-04 09:16 | BI_ITS ---
MAMMOGRAPHY - BILATERAL DIAGNOSTIC REASON FOR EXAM: Female, 79 years old. History of one year post left lumpectomy. PERTINENT HISTORY: Personal history of breast cancer. Prior left lumpectomy and radiation treatment. TECHNIQUE: Digital bilateral breast shaye (3D mammographic acquisition) in the CC and MLO projections. 2-D mediolateral oblique (MLO) and craniocaudad (CC) views of both breasts were obtained. CAD: Full Field Digital Mammography with Computer Added Detection was performed. COMPARISON: Comparison is made with prior study dated 01/30/2019 and 07/17/2014. FINDINGS: Breast Composition: There are scattered areas of fibroglandular density. There are no dominant masses or suspicious calcifications. The patient is status post lumpectomy in the upper central lateral aspect of the left breast with postoperative scarring and skin thickening. No new mass lesion or cluster of microcalcification is present. No other significant abnormalities are identified. BI/DIAG MAMM W/CAD, BILAT IMPRESSION: Status post lumpectomy in the central slightly lateral aspect of the left breast with postoperative scarring and breast deformity and skin thickening. One year follow-up recommended. (A) ASSESSMENT CATEGORY: BIRADS Category 2: Benign. A letter regarding these results will be sent to the patient by the facility within 30 days. Approximately 10% of breast cancers are not detected by mammography. A normal mammogram should not delay biopsy of a clinically suspicious abnormality. Electronically Signed: Medhat Gallardo, at 15:21 EDT , Service support ,
== END ==
PROVIDERS: PCP Family Medicine; Referring Provider Student in an Organized Health Care Education/Training Program; Visit Provider Student in an Organized Health Care Education/Training Program
DX: C50.412 Malignant neoplasm of upper-outer quadrant of left female breast (principal)
CPT/HCPCS: 77066

== ENCOUNTER → 2020-03-10 12:22 | Outpatient (CLI) | payer MEDICARE, SELFPAY ==
[2019-03-13 11:01] VITALS: BMI 37.0
[2019-12-03 11:06] VITALS: BMI 37.8
[2020-03-10 15:40] LABS: Absolute Lymphocyte Count 1.37 X10^3/uL (0.83-4.51); Absolute Neutrophil Count 2.5 X10^3/uL (2.0-7.7); Basophil# 0.03 X10^3/uL; Basophil% 0.6 % (0-1); Eosinophil# 0.15 X10^3/uL; Eosinophils% 3.2 % (0-5); Hematocrit 41.3 % (37-47); Lymphocyte # 1.37 X10^3/ul (4.0); Lymphocyte % 29.6 % (19-41); Mean Corp Hgb Conc 31.5 g/dL (32-36); Mean Corpuscular Hgb 31.6 pg (27.0-32.0); Mean Corpuscular Volume 100.2 fL (81-99); Mean Platelet Vol. 11.2 fl (6.2-12.0); Monocyte# 0.54 X10^3/uL; Monocyte% 11.7 % (0-10); NRBC Flagged by Analyzer 0 % (0-5); Neutrophil # 2.53 X10^3/uL (2.7-7.7); Neutrophil % 54.7 % (47-70); Platelet Count 208 K/mm3 (150-450); RBC Distribution Width CV 12.8 % (11.6-14.6); RBC Distribution Width SD 47.4 fl (35.1-43.9); Red Blood Count 4.12 M/mm3 (4.2-5.4); White Blood Count 4.6 K/mm3 (4.4-11.0)
[2020-03-10 16:24] LABS: ALB/GLOB Ratio 0.9 RATIO (0.9-2.4); AST(SGOT) 19 U/L (15-37); Alanine Aminotransfer ALT/SGPT 25 U/L (13-56); Albumin, Serum 3.7 g/dL (3.2-5.0); Alkaline Phosphatase 74 U/L (45-117); Anion Gap 6 (5-15); BUN 15 mg/dL (7-18); BUN/Creat Ratio 15.7 RATIO (10-20); Calcium,Total 9.9 mg/dL (8.5-10.1); Chloride 105 mmol/L (98-107); Creatinine, Serum 0.96 mg/dL (0.55-1.02); EST Glomerular Filtration Rate 60 mL/min (>60); Est Glom Filt Rate - Afr Amer 72 mL/min (>60); Globulin 4.2 g/dL (2.2-4.2); Glucose 103 mg/dL (74-106); Potassium 4.6 mmol/L (3.5-5.1); Protein, Total 7.9 g/dL (6.4-8.2); Sodium Level 139 mmol/L (136-145); Thyroid Stim Hormone (TSH) 0.75 uIU/mL (0.358-3.74)
== END ==
PROVIDERS: PCP Family Medicine; Visit Provider Family Medicine
DX: E11.9 Type 2 diabetes mellitus without complications (principal); M85.80 Other specified disorders of bone density and structure, unspecified site
CPT/HCPCS: 36415; 80053; 82306; 84443; 85025

== ENCOUNTER → 2021-02-04 10:06 | Outpatient (CLI) | payer MEDICARE, SELFPAY ==
[2019-03-13 11:01] VITALS: BMI 37.0
[2020-12-09 13:31] VITALS: BMI 35.8
--- NOTE | 2021-02-04 10:06 | BI_ITS ---
MAMMOGRAPHY - BILATERAL SCREENING REASON FOR EXAM: Female, 80 years old. Routine annual screening examination. PERTINENT HISTORY: Personal history of breast cancer. Prior left lumpectomy with radiation treatment. TECHNIQUE: Digital bilateral breast kunal (3D mammographic acquisition) in the CC and MLO projections. 2-D mediolateral oblique (MLO) and craniocaudad (CC) views of both breasts were obtained. CAD: Full Field Digital Mammography with Computer Added Detection was performed. COMPARISON: Comparison is made with prior examination dated 02/04/2020 and 02/21/2019. FINDINGS: Breast Composition: There are scattered areas of fibroglandular density. There are no dominant masses or suspicious calcifications. The patient is status post lumpectomy in the upper slightly lateral portion of the left breast with resultant postoperative architectural distortion and overlying skin thickening. No new mass lesion is seen. Stable densely calcified nodule in the right periareolar region. No other significant abnormalities are identified. There has been no significant change since the prior study. BI/SCRN MAMM (CAD)W/KUNLA BILAT IMPRESSION: Stable bilateral screening mammogram. Yearly follow-up mammogram recommended. (A) ASSESSMENT CATEGORY: BIRADS Category 2: Benign. A letter regarding these results will be sent to the patient by the facility within 30 days. Approximately 10% of breast cancers are not detected by mammography. A normal mammogram should not delay biopsy of a clinically suspicious abnormality. [id number] Electronically Signed: Medhat Gallardo MD at 11:08 EDT , Service support ,
== END ==
PROVIDERS: PCP Family Medicine; Referring Provider Internal Medicine Hematology & Oncology; Visit Provider Internal Medicine Hematology & Oncology
DX: Z12.31 Encounter for screening mammogram for malignant neoplasm of breast (principal)
CPT/HCPCS: 77063; 77067

== ENCOUNTER → 2021-09-15 | Outpatient (CLI) | payer MEDICARE, SELFPAY ==
[2019-03-13 11:01] VITALS: BMI 37.0
== END | disposition home or self-care (01) ==
LOC: LABSPEC 09:47
PROVIDERS: PCP Family Medicine; Visit Provider Family Medicine
DX: U07.1 COVID-19 (principal)
CPT/HCPCS: 87635; U0003; U0005

== ENCOUNTER → 2021-12-10 | Outpatient (CLI) | payer MEDICARE, SELFPAY ==
[2019-03-13 11:01] VITALS: BMI 37.0
--- NOTE | 2021-12-10 15:41 | RAD_ITS ---
EXAM: XR RIGHT SHOULDER COMPLETE, 2 OR MORE VIEWS CLINICAL INDICATION: PAIN TECHNIQUE: Two or more views of the right shoulder. This report was created using [employer] report generation technology. COMPARISON: None. FINDINGS: LUNGS AND PLEURAL SPACES: Unremarkable included portion of the right lung with the exception of tiny presumed calcified granuloma. RIGHT SHOULDER: Postoperative changes with 2 small metal screwlike orthopedic devices in the right humeral head-neck junction. No evidence of glenohumeral or AC joint widening or separation. Inferiorly projecting osteophyte from the distal margin of the clavicle measuring about 5 mm, mildly narrowing the underlying rotator cuff interval. RAD/Shoulder min 2 Views IMPRESSION: Demineralization, degenerative and postoperative changes. No acute abnormality. Electronically Signed: Yolanda Pride MD at 0:18 EDT ,
--- NOTE | 2021-12-10 15:41 | RAD_ITS ---
STUDY: X-RAY - RIGHT WRIST REASON FOR EXAM: Right wrist pain, right wrist injury yesterday. TECHNIQUE: 3 view(s) of the wrist were obtained. COMPARISON: None. FINDINGS: Normal visualized distal radius and ulna. Normal radiocarpal articulation. Normal distal radioulnar articulation. Normal remaining carpal bones. Normal carpal articulations. There is resection arthroplasty of the carpometacarpal articulation of the thumb. Normal second through fifth carpometacarpal articulations. Normal visualized metacarpal bones. There is chondrocalcinosis in the triangular fibrocartilage. There is vascular calcification. RAD/Wrist min 3 Views IMPRESSION: Status post resection arthroplasty of the first carpometacarpal articulation. Chondrocalcinosis. No demonstrated fracture. Electronically Signed: Anant Amaya MD at 7:57 EDT ,
--- NOTE | 2021-12-10 15:41 | RAD_ITS ---
Age: 81 years Exam: XR Elbow Min 3 Views RIGHT Comparison: History: PAIN. FINDINGS: Advanced degenerative change with hypertrophic changes at the medial and lateral humeral condyles, mild hypertrophic changes of the proximal ulna and radius. No joint effusion. Mild tendon calcification posterior to the olecranon. Mild lateral joint compartment narrowing and sclerosis of the articular surface of the radius. RAD/Elbow min 3 Views IMPRESSION: No fracture or joint effusion. Advanced degenerative change. Electronically Signed: Yolanda Pride MD at 0:13 EDT ,
== END | disposition home or self-care (01) ==
LOC: MTRAD 15:39
PROVIDERS: PCP Family Medicine; Referring Provider Family Medicine; Visit Provider Family Medicine
DX: M25.511 Pain in right shoulder (principal); M25.521 Pain in right elbow; M25.531 Pain in right wrist
CPT/HCPCS: 73030; 73080; 73110

== ENCOUNTER → 2021-12-22 | Outpatient (CLI) | payer MEDICARE, SELFPAY ==
[2019-03-13 11:01] VITALS: BMI 37.0
--- NOTE | 2021-12-22 13:56 | RAD_ITS ---
STUDY: X-RAY - RIGHT ELBOW REASON FOR EXAM: Female, 81 years old. PAIN TECHNIQUE: 3 view(s) of the elbow. COMPARISON: Comparison is made with prior study 12/10/2021. FINDINGS: Nondisplaced radial neck fracture. There is degenerative arthrosis of the radiocapitellar and ulnotrochlear articulations. Joint effusion. RAD/Elbow min 3 Views IMPRESSION: Findings suggest a nondisplaced radial neck fracture. Joint effusion. Degenerative changes. Electronically Signed: Medhat Gallardo MD at 14:39 EDT ,
--- NOTE | 2021-12-22 13:57 | RAD_ITS ---
STUDY: X-RAY - ACUTE ABDOMINAL SERIES REASON FOR EXAM: Female, 81 years old. CONSTIPATION TECHNIQUE: Single view of the chest. Supine, and erect view(s) of the abdomen were obtained. COMPARISON: Comparison is made with prior study dated 08/15/2018. FINDINGS: The lungs are clear and expanded. Normal size heart. Normal mediastinum and isaac. Normal visualized pulmonary arteries. There is atherosclerotic calcification of the aortic arch with tortuosity. There is an abundance of fecal material throughout the colon. There are multiple calcified phleboliths. Hepatomegaly. Hiatal hernia. There are diffuse degenerative changes of the visualized lumbar spine. Prior laminectomy and fusion at the L4-L5 and L5-S1 levels. Degenerative changes of the sacroiliac joints bilaterally as well as the symphysis pubis. RAD/Acute Abdomen Inc Chest IMPRESSION: A large amount of fecal material is seen in the colon. Electronically Signed: Medhat Gallardo MD at 15:04 EDT ,
== END | disposition home or self-care (01) ==
LOC: MTRAD 13:55
PROVIDERS: PCP Family Medicine; Referring Provider Family Medicine; Visit Provider Family Medicine
DX: M25.521 Pain in right elbow (principal); K59.00 Constipation, unspecified
CPT/HCPCS: 73080; 74022

== ENCOUNTER → 2022-02-05 | Outpatient (CLI) | payer MEDICARE, SELFPAY ==
[2019-03-13 11:01] VITALS: BMI 37.0
--- NOTE | 2022-02-05 08:20 | BI_ITS ---
MAMMOGRAPHY - BILATERAL SCREENING REASON FOR EXAM: Female, 81 years old. Routine annual screening examination. PERTINENT HISTORY: Personal history of breast cancer. History of prior left lumpectomy with radiation treatment. Prior right stereotactic breast biopsy. TECHNIQUE: Digital bilateral breast kunal (3D mammographic acquisition) in the CC and MLO projections. 2-D mediolateral oblique (MLO) and craniocaudad (CC) views of both breasts were obtained. CAD: Full Field Digital Mammography with Computer Added Detection was performed. COMPARISON: Comparison is made with prior study 02/04/2021 and 02/04/2020. FINDINGS: Breast Composition: There are scattered areas of fibroglandular density. There are no dominant masses or suspicious calcifications. Once again, the patient is status post lumpectomy in the upper slightly lateral aspect of the left breast with resultant architectural distortion and overlying breast deformity and skin thickening. Stable densely calcified nodule in the right periareolar region. A tissue clip marker is seen in the retroareolar region of the right breast. No other significant abnormalities are identified. There has been no significant change since the prior study. BI/SCRN MAMM (CAD)W/KUNAL BILAT IMPRESSION: Stable bilateral screening mammogram. Yearly follow-up mammogram recommended. (A) ASSESSMENT CATEGORY: BIRADS Category 2: Benign. A letter regarding these results will be sent to the patient by the facility within 30 days. Approximately 10% of breast cancers are not detected by mammography. A normal mammogram should not delay biopsy of a clinically suspicious abnormality. [id number] Electronically Signed: Medhat Gallardo MD at 9:12 EDT ,
== END | disposition home or self-care (01) ==
LOC: OPBI 08:19
PROVIDERS: PCP Family Medicine; Referring Provider Internal Medicine Hematology & Oncology; Visit Provider Internal Medicine Hematology & Oncology
DX: Z12.31 Encounter for screening mammogram for malignant neoplasm of breast (principal)
CPT/HCPCS: 77063; 77067

== ENCOUNTER → 2022-06-04 | Outpatient (CLI) | payer MEDICARE, SELFPAY ==
[2019-03-13 11:01] VITALS: BMI 37.0
[2022-06-04 15:08] LABS: Absolute Lymphocyte Count 1.19 X10^3/uL (0.83-4.51); Absolute Neutrophil Count 7.3 X10^3/uL (2.0-7.7); Basophil# 0.09 X10^3/uL; Basophil% 0.9 % (0-1); Eosinophil# 0.14 X10^3/uL; Eosinophils% 1.4 % (0-5); Hematocrit 45.2 % (37-47); Hemoglobin 14.3 g/dL (12.0-15.0); Lymphocyte # 1.19 X10^3/ul (0.83-4.51); Lymphocyte % 12.2 % (19-41); Mean Corp Hgb Conc 31.6 g/dL (32-36); Mean Corpuscular Hgb 30.4 pg (27.0-32.0); Mean Corpuscular Volume 96.2 fL (81-99); Mean Platelet Vol. 11.7 fl (6.2-12.0); Monocyte# 0.96 X10^3/uL; Monocyte% 9.9 % (0-10); NRBC Flagged by Analyzer 0 % (0-5); Neutrophil # 7.31 X10^3/uL (2.7-7.7); Neutrophil % 75.3 % (47-70); Platelet Count 256 K/mm3 (150-450); RBC Distribution Width CV 13.2 % (11.6-14.6); RBC Distribution Width SD 46.9 fl (35.1-43.9); White Blood Count 9.7 K/mm3 (4.4-11.0)
[2022-06-04 15:48] LABS: ALB/GLOB Ratio 0.8 RATIO (0.9-2.4); AST(SGOT) 38 U/L (15-37); Alanine Aminotransfer ALT/SGPT 26 U/L (13-56); Albumin, Serum 3.7 g/dL (3.2-5.0); Alkaline Phosphatase 202 U/L (45-117); Anion Gap 10 (5-15); BUN 17 mg/dL (7-18); BUN/Creat Ratio 19.5 RATIO (10-20); Calcium,Total 10.4 mg/dL (8.5-10.1); Chloride 100 mmol/L (98-107); Creatinine, Serum 0.87 mg/dL (0.55-1.02); EST Glomerular Filtration Rate 66 mL/min (>60); Est Glom Filt Rate - Afr Amer 80 mL/min (>60); Globulin 4.6 g/dL (2.2-4.2); Glucose 105 mg/dL (74-106); Potassium 4.2 mmol/L (3.5-5.1); Prealbumin 13.1 mg/dL (20.0-40.0); Protein, Total 8.3 g/dL (6.4-8.2); Sodium Level 136 mmol/L (136-145)
== END | disposition home or self-care (01) ==
LOC: MFPLAB 11:36
PROVIDERS: PCP Family Medicine; Referring Provider Family Medicine; Visit Provider Family Medicine
DX: C50.919 Malignant neoplasm of unspecified site of unspecified female breast (principal); R11.0 Nausea
CPT/HCPCS: 36415; 80053; 84134; 85025

== ENCOUNTER 2022-06-28 11:47 | Emergency (ER) | payer MEDICARE, SELFPAY ==
[2019-03-13 11:01] VITALS: BMI 37.0
[2022-06-28 11:48] VITALS: BP 122/67; PULSE 88; RESP 16; TEMP 36.1; O2SAT 94; BMI 27.9
--- NOTE | 2022-06-28 12:52 | EX.ED.DYSGE1 ---
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 While she has had problems with this, her son arrives and states that she was able to eat yesterday evening. He had received a phone call that she was whisked off to the hospital. computer help desk representative and social work are present at the bedside, stating that she has a home hospice patient, but because she called out to her this morning and experienced nausea and vomiting 2 or 3 times today, he called EMS. They thought that maybe she was vomiting blood, but not quite sure. [facility] Medical History Adenocarcinoma metastatic to both lungs Adenocarcinoma of unknown primary Anxiety Back pain Bone metastasis Breast cancer, left Liver metastasis Home Medications Calcium 500-Vit D3 600 Caplet 1 tab PO DAILY 03/07/19 [History Last Taken Unknown] tizanidine 2 mg capsule 2 mg PO QHS 06/03/20 [History Last Taken Unknown] sertraline 100 mg tablet 150 mg PO QHS DEPRESSION 08/11/21 [History Last Taken Unknown] anastrozole 1 mg tablet 1 mg PO DAILY 90 days #90 tabs 12/08/21 [Rx Last Taken Unknown] oxycodone 5 mg tablet 5 mg PO Q6H PRN 06/07/22 [History Last Taken Unknown] oxycodone 5 mg tablet 5 mg PO Q6H PRN Pain 7 days #30 tabs 06/07/22 [Rx Last Taken Unknown] pantoprazole 40 mg tablet,delayed release 40 mg PO BID 06/07/22 [History Last Taken Unknown] Allergy/AdvReac Type Severity Reaction Status Date / Time aspirin Allergy Severe Swelling Verified 06/28/22 11:53 levofloxacin [From Levaquin] Allergy Severe Swelling Verified 06/28/22 11:53 meperidine HCl [From Demerol] Allergy Severe Swelling Verified 06/28/22 11:53 Family History Sister Heart disease Thyroid disorder Cancer renal Father Cancer brain Mother Cancer unsure type Surgical History History of bilateral cataract extraction history of bilateral elbow surgery history of bilateral heel spur removal History of bilateral knee replacement History of colonoscopy history of dental implant surgery History of left breast biopsy (~05/2019) History of lumpectomy of left breast History of total hysterectomy Status post cataract extraction of both eyes with insertion of intraocular lens Social History Smoking Status: Never smoker ROS ROS ED ROS Narrative Constitutional: No fever, no chills. HEENT: No sore throat. No neck pain. No loss of vision. No rhinorrhea. Cardiovascular: No chest pain. No palpitations. No pedal edema. Respiratory: No cough, no shortness of breath. Abdominal: No abdominal pain. A few episodes of nausea and vomiting returning today/this morning. Genitourinary: No dysuria. No hematuria. Musculoskeletal: No myalgias. No arthralgias. Neurologic: No headaches. No dizziness. No lightheadedness. Skin: No rash. No change in color. Psychiatric: No depression. No anxiety. EXAM Physical Exam Narrative Exam Narrative: Afebrile. Vital signs noted. HEENT: Normocephalic. Atraumatic. PERRL, EOMI. Neck soft and supple. No point tenderness or step off. Cardiovascular: Regular rate and rhythm. No murmurs, rubs, or gallops appreciated. Respiratory: No tachypnea. Lungs clear to auscultation bilaterally. Gastrointestinal: Abdomen soft, nontender, with normoactive bowel sounds. No rebound or guarding. Neurological: Awake. Alert. Nonfocal, nonlateralizing. Skin: No rash. Normal color. No pallor. Musculoskeletal: No pedal edema. Full range of motion extremities. Const Vital Signs: 06/28/22 11:48 Temperature 97.0 F L Temperature Source Temporal Pulse Rate 88 Respiratory Rate 16 Blood Pressure 122/67 H Blood Pressure Mean 85 Pulse Ox 94 Oxygen Delivery Method Room Air MDM MDM MDM Narrative Medical decision making narrative: Upon arrival to the room, social sciences professor, director hospice operations, patient's son and are present at the bedside. I was informed that she has excepted hospice at an inpatient facility. She was given Zofran 4 mg ODT for her nausea. I discussed the patient with Dr. Prachi Garcia with hospice who is excepted her to the inpatient facility. She will be transferred there in stable condition. Discharge Plan Triage Chief Complaint: Nausea/Vomiting ED Provider: Jones Bains Dx/Rx/DC Orders Clinical Impression: Adenocarcinoma of unknown primary, Liver metastasis, Bone metastasis, Adenocarcinoma metastatic to both lungs, Hospice program care, Nausea and vomiting Instructions: ED Vomiting (Adult) Prescriptions: No Action pantoprazole 40 mg tablet,delayed release (DR/EC) 40 mg PO BID oxycodone 5 mg tablet 5 mg PO Q6H PRN sertraline 100 mg tablet 150 mg PO QHS Calcium 500-Vit D3 600 Caplet 1 tab PO DAILY tizanidine 2 MG capsule 2 mg PO QHS anastrozole [anastrozole] 1 MG tablet 1 mg PO DAILY 90 Days Qty: 90 1RF oxycodone 5 mg Tablet 5 mg PO Q6H PRN (Reason: Pain) 7 Days Qty: 30 0RF Primary Care Provider: Andrew Domingo Referrals: Andrew Domingo MD [Primary Care Provider] - Disposition Disposition: Hospice in Medical Facility Discharge Location: [facility] Discharge Date/Time: 06/28/22 13:35
[2022-06-28] MEDS: Ondansetron ODT 4 MG Tablet PO (12:54)
== END 2022-06-28 13:35 | disposition hospice, inpatient (51) ==
PROVIDERS: Emergency Provider Emergency Medicine; PCP Family Medicine; Visit Provider Emergency Medicine
DX: C80.1 Malignant (primary) neoplasm, unspecified (principal); C79.51 Secondary malignant neoplasm of bone; C78.7 Secondary malignant neoplasm of liver and intrahepatic bile duct; C78.01 Secondary malignant neoplasm of right lung; C78.02 Secondary malignant neoplasm of left lung; R11.2 Nausea with vomiting, unspecified
CPT/HCPCS: 99285